=== PATIENT | female | born 1995 | race Caucasian/White ===

== ENCOUNTER 2020-03-10 20:08 | Emergency (ER) | payer MEDICAID ==
[~2020-03-10] VITALS: Ht 152.4 cm; Wt 93.9 kg
[2020-03-10 20:12] VITALS: BP_SYST 104
--- NOTE | 2020-03-10 20:28 | NUR ---
RECEIVED AND IN ROOM, LYUBOV TO ASSUME CARE
--- NOTE | 2020-03-10 20:32 | NUR ---
PT UP AMBULATING STEADY. URINE OBTAINED
[2020-03-10] MEDS ORDERED: NACL 0.9% 1,000 ML IV ONE (20:45)
--- NOTE | 2020-03-10 21:02 | NUR ---
CALM, ALERT, RESP UNLABORED, IV HYDRATION, LABS SENT
[2020-03-10 21:04] LABS: BASOPHILS % (AUTO) 0.4 % (0.0-2.0); EOSINOPHILS % (AUTO) 0.1 % (0.0-4.0); HEMATOCRIT 24.9 % (36-48); HEMOGLOBIN 8.6 g/dL (12.0-16.0); LYMPHOCYTES # (AUTO) 2.6 K/uL (1.0-5.5); LYMPHOCYTES % (AUTO) 29.4 % (20.5-51.5); MEAN CORPUSCULAR HEMOGLOBIN 30 pg (27-31); MEAN CORPUSCULAR HGB CONC 35 % (32-36); MEAN CORPUSCULAR VOLUME 86 fL (79.0-98.0); MONOCYTES # (AUTO) 0.4 K/uL (0.0-1.0); MONOCYTES % (AUTO) 5.1 % (1.7-9.3); NEUTROPHILS # (AUTO) 5.7 K/uL (1.8-7.7); PLATELET COUNT (AUTO) 251 K/uL (130-430); RED BLOOD CELL COUNT(AUTO) 2.89 MIL/uL (4.2-6.2); RED CELL DISTRIBUTION WIDTH 14.7 % (9.0-15.0); WHITE BLOOD COUNT (AUTO) 8.7 K/uL (4.8-10.8)
[2020-03-10] MEDS ORDERED: MORPHINE 2 MG/ML INJ. SYRINGE IVP ONE (21:15)
[2020-03-10 21:24] LABS: BILIRUBIN,URINE NEGATIVE (NEGATIVE); BLOOD, URINE 3+ (NEGATIVE); CLARITY/URINE CLEAR (CLEAR); COLOR,URINE YELLOW (YELLOW); GLUCOSE,URINE NEGATIVE (NEGATIVE); KETONES,URINE 1+ (NEGATIVE); LEUKOCYTE ESTERASE ,URINE TRACE (NEGATIVE); NITRITE, URINE NEGATIVE (NEGATIVE); PH,URINE 8.5 (5.0-8.0); PROTEIN URINE TRACE (NEGATIVE)
[2020-03-10 21:53] LABS: CALCIUM 8.1 mg/dL (8.4-11.0); CREATININE 0.65 mg/dL (0.55-1.30); POTASSIUM 3.4 mmol/L (3.5-5.1)
--- NOTE | 2020-03-10 22:03 | NUR ---
OFF TO ULTRASOUND, NO DISTRESS, PAIN TOLERABLE
[2020-03-10 22:31] LABS: TOTAL BILIRUBIN 0.2 mg/dL (0.0-1.0)
[2020-03-10 22:37] LABS: BACTERIA,URINE None Seen /HPF (None Seen); RBC,URINE 80-100 /HPF (0-3); TRICHOMONAS,URINE None Seen /HPF (None Seen); YEAST,URINE None Seen /HPF (None Seen)
--- NOTE | 2020-03-10 22:38 | NUR ---
BACK FROM ULTRASOUND, DENIES [PAIN. NO COMPLAINTS.
--- NOTE | 2020-03-10 23:30 | NUR ---
Pt states that she went to [facility] on and was given the first dose of an "" pill. She then took 4 more on Wednesday. She states that she experienced a "normal" amount of vaginal bleeding at 1200, then bleeding became heavy around an hour later. Pt states that she soaked 1 pad within minutes. At 1900, pt states that she passed out while on the toilet. Denies hitting head or sustaining trauma. Pt states that she soaked a total of 18 pads since midnight. Pt was brought to ER by and was admitted to OB under the services of Dr. De Leon. Pt was subsequently discharged this AM with Dx Incomplete and instructed to return to ER should symptoms worsens. Pt states that she is currently passing dark red clots. At this time, pt c/op Nausea and generalized weakness. Denies c/o pain.
--- NOTE | 2020-03-10 23:40 | NUR ---
Dr. Cid at bedside.
[2020-03-10] MEDS ORDERED: ONDANSETRON HCL 4 MG/2 ML VIAL IVP ONE (23:45)
--- NOTE | 2020-03-11 | NUR ---
Johnna steiner in [facility] - 03/11/20 at 0012 by KUSUMJ Pt moved to bed 07.
--- NOTE | 2020-03-11 | NUR ---
Pt moved to ER bed 03.
--- NOTE | 2020-03-11 00:15 | NUR ---
Zofran 4 mg IVP given for c/o nausea.
--- NOTE | 2020-03-11 01:30 | NUR ---
Pt denies c/o pain or discomfort and states that bleeding is very minimal. No needs verbalized.
--- NOTE | 2020-03-11 01:55 | NUR ---
No further c/o nausea. No needs verbalized at this time.
--- NOTE | 2020-03-11 02:38 | NUR ---
Note undone in EDM - 03/11/20 at 0258 by TONY Patient to be transferred to [facility], Rm [id number]. Is being transferred due to higher level of care. Receiving facility has accepting physician and available space. ER physician has signed transfer form. Patient or responsible alliance party has agreed to transfer and signed form. Patient belongings inventoried and will be sent with patient. Copy of nursing notes, lab reports, EKG, Physicians Orders and X-rays to be sent with patient. Report called to HILDA Luong at receiving facility. Receiving physician is Rafaela. Pt leaves in c/o BLS ambulance via stretcher in stable condition.
--- NOTE | 2020-03-11 02:38 | NUR ---
B/P 86/45, HR 98, per BLS. B/P recheck 94/62, HR 99. Dr. Cid notified. Pt not to be transferred until B/P stable. Pt denies c/o dizziness. Pt states that she has soaked 2 pads since arrival to ER. Pt states vaginal bleeding has diminished.
--- NOTE | 2020-03-11 02:40 | NUR ---
NS 1 Liter bolus infusing to patent PIV LAC.
[2020-03-11] MEDS ORDERED: NACL 0.9% 1,000 ML IV ONE ×2 (02:45→03:30)
--- NOTE | 2020-03-11 02:45 | NUR ---
BLS leaves and states to call them when pt is ready.
--- NOTE | 2020-03-11 03:10 | NUR ---
B/P 97/50, HR 80. BLS transport called and states ETA [address] Cid notified of V/S and a second liter NS to be administered.
--- NOTE | 2020-03-11 03:38 | NUR ---
B/P 104/52, HR 80, SPO2 97%. Second NS 1 Liter bolus in progress. Pt denies c/o pain or discomfort. Warm blanket provided.
--- NOTE | 2020-03-11 04:05 | NUR ---
B/P 110/46, HR 83. Denies c/o pain or discomfort, no needs verbalized. Pt care endorsed to HILDA Hill.
[2020-03-11 04:28] VITALS: BP_SYST 100
--- NOTE | 2020-03-11 04:30 | NUR ---
Patient to be transferred to [facility] Is being transferred due to higher level of care. Receiving facility has accepting physician and available space. ER physician has signed transfer form. Patient or responsible republican has agreed to transfer and signed form. Patient belongings inventoried and will be sent with patient. Copy of nursing notes, lab reports, EKG, Physicians Orders and X-rays to be sent with patient. Report called to Cherise at receiving facility. Receiving physician is Rafaela. [facility] ambulance service on scene for transfer. Report Given and transferred to [facility] without incident
== END 2020-03-11 04:30 | disposition short-term general hospital (02) ==
LOC: SED 20:08
DX: N93.9 Abnormal uterine and vaginal bleeding, unspecified (principal); D64.9 Anemia, unspecified
CPT/HCPCS: 36415; 76801; 76817; 80053; 81000; 84702; 85025; 96361; 96374; 96375; 99285; J2270; J2405; J7030 ×2

== ENCOUNTER 2020-05-14 22:42 | Emergency (ER) | payer MEDICAID ==
[~2020-05-14] VITALS: Ht 160 cm; Wt 72.6 kg
[2020-05-14 22:46] VITALS: BP_SYST 150
--- NOTE | 2020-05-14 22:46 | NUR ---
Patient triaged and placed in waiting room. VSS and patient appears in no acute distress at this time. Accompanied by FAM MEMBER, awaiting available bed, and MD notified of need for MSE.
--- NOTE | 2020-05-14 23:35 | NUR ---
Patient to ER bed 3 to gown for evaluation. Side rails up. Report given to Haydee STEVENS.
--- NOTE | 2020-05-15 00:05 | NUR ---
ER Dr. GEORGE at bedside examining patient.
--- NOTE | 2020-05-15 00:06 | NUR ---
PT A&O X4 FROM HOME C/O OF LOWER ABDOMINAL PAIN THAT STARTED AROUND 1AM THIS MORNING THAT WOKE HER UP FROM SLEEP. PT REPORTS IT IS A BURNING/SHARP PAIN THAT COMES AND GOES. PT HAD 3-4 EPISODES OF VOMITING SINCE THE PAIN STARTED. PT REPORTS SHE HAS BEEN OFF AND ON BLEEDING SINCE WHICH LEAD TO DIAGNOSIS OF A MASS ON HER UTERUS WHICH SHE HAS STARTED CHEMO FOR. PT DENIES NAUSEA AT THE MOMENT, FEVER, CHILLS, REBOUND TENDERNESS. WILL CONTINUE TO MONITOR.
[2020-05-15] MEDS ORDERED: NACL 0.9% 1,000 ML IV ONE ×2 (00:15→02:45)
[2020-05-15] MEDS ORDERED: ONDANSETRON HCL 4 MG/2 ML VIAL IVP ONE (00:15)
[2020-05-15] MEDS ORDERED: DIPHENHYDRAMINE INJ 50 MG/ML VIAL IVP ONE (00:15)
[2020-05-15] MEDS ORDERED: MORPHINE 4 MG/ML INJ. SYRINGE IVP ONE ×2 (00:15→03:00)
--- NOTE | 2020-05-15 00:22 | NUR ---
# 20 gauge angiocath placed to LEFT AC. Use of asceptic technique. Opsite placed over site. Blood return noted. Blood for lab drawn from site. Flushed with 10 cc of normal saline. No evidence of infiltration noted. Patient tolerated well.
[2020-05-15 00:37] LABS: BASOPHILS % (AUTO) 0.4 % (0.0-2.0); EOSINOPHILS % (AUTO) 0.5 % (0.0-4.0); HEMATOCRIT 33.4 % (36-48); HEMOGLOBIN 10.8 g/dL (12.0-16.0); LYMPHOCYTES # (AUTO) 2.9 K/uL (1.0-5.5); LYMPHOCYTES % (AUTO) 33.1 % (20.5-51.5); MEAN CORPUSCULAR HEMOGLOBIN 26 pg (27-31); MEAN CORPUSCULAR HGB CONC 32 % (32-36); MEAN CORPUSCULAR VOLUME 81 fL (79.0-98.0); MONOCYTES # (AUTO) 0.6 K/uL (0.0-1.0); MONOCYTES % (AUTO) 7.4 % (1.7-9.3); NEUTROPHILS # (AUTO) 5.1 K/uL (1.8-7.7); NEUTROPHILS % (AUTO) 58.6 % (40.0-70.0); PLATELET COUNT (AUTO) 321 K/uL (130-430); RED BLOOD CELL COUNT(AUTO) 4.13 MIL/uL (4.2-6.2); RED CELL DISTRIBUTION WIDTH 17.5 % (9.0-15.0); WHITE BLOOD COUNT (AUTO) 8.7 K/uL (4.8-10.8)
[2020-05-15 00:48] LABS: BILIRUBIN,URINE NEGATIVE (NEGATIVE); BLOOD, URINE 2+ (NEGATIVE); CLARITY/URINE CLEAR (CLEAR); COLOR,URINE YELLOW (YELLOW); GLUCOSE,URINE NEGATIVE (NEGATIVE); KETONES,URINE NEGATIVE (NEGATIVE); LEUKOCYTE ESTERASE ,URINE NEGATIVE (NEGATIVE); NITRITE, URINE NEGATIVE (NEGATIVE); PROTEIN URINE NEGATIVE (NEGATIVE); UROBILINOGEN,URINE 0.2 (0.2-1.0)
[2020-05-15 00:49] LABS: CALCIUM 8.5 mg/dL (8.4-11.0); CREATININE 0.57 mg/dL (0.55-1.30)
[2020-05-15 00:54] LABS: ALBUMIN 3.4 g/dL (3.4-4.8); TOTAL BILIRUBIN 0.2 mg/dL (0.0-1.0)
[2020-05-15 00:59] LABS: BACTERIA,URINE FEW /HPF (None Seen); HYALINE CASTS, URINE 0-10 /LPF (None Seen); WBC,URINE 0-3 /HPF (0-3)
--- NOTE | 2020-05-15 01:00 | NUR ---
Patient transported to radiology via WHEELCHAIR, accompanied by
--- NOTE | 2020-05-15 01:15 | NUR ---
PATIENT RETURNED FROM RADIOLOGY IN STABLE CONDITION.
--- NOTE | 2020-05-15 02:38 | NUR ---
DR. GEORGE AT BEDSIDE SPEAKING WITH PATIENT.
[2020-05-15 03:50] VITALS: BP_SYST 105
--- NOTE | 2020-05-15 03:50 | NUR ---
Patient given written and verbal discharge instructions and verbalizes understanding. ER MD discussed with patient the results and treatment provided. Patient in stable condition. ID arm band removed. IV catheter removed intact and dressing applied, no active bleeding. no Rx of given. Patient educated on pain management and to follow up with PMD. Pain Scale 2/10. Opportunity for questions provided and answered. Medication side effect fact sheet provided.
== END 2020-05-15 03:50 | disposition home or self-care (01) ==
LOC: SED 22:42
DX: C55 Malignant neoplasm of uterus, part unspecified (principal); R10.9 Unspecified abdominal pain
CPT/HCPCS: 36415; 74177; 76376; 80053; 81000; 81025; 85025; 96361; 96374; 96375; 96376; 99285; J1200; J2270; J2405; J7030; Q9967

== ENCOUNTER 2020-06-14 09:35 | Emergency (ER) | payer MEDICAID, SELFPAY ==
[~2020-06-14] VITALS: Ht 154.9 cm; Wt 93.0 kg
[2020-06-14 10:00] VITALS: BP_SYST 97
[2020-06-14 12:00] VITALS: BP_SYST 97
== END 2020-06-14 12:00 | disposition home or self-care (01) ==
LOC: SED 09:35
DX: J02.9 Acute pharyngitis, unspecified (principal)
CPT/HCPCS: 36415; 86403; 87081; 99283

== ENCOUNTER 2022-08-05 11:28 | Emergency (ER) | payer MEDICAID ==
[~2022-08-05] VITALS: Ht 152.4 cm; Wt 106.1 kg
[2022-08-05 11:31] VITALS: BP_SYST 104
--- NOTE | 2022-08-05 11:40 | NUR ---
Pt brought by self, A&Ox4, pt presents to ER with cough, congestion x 2 days, O2 98%, skin pink and warm, cap refill <3, will cont to monitor.
--- NOTE | 2022-08-05 13:10 | NUR ---
Dr Scales evaluating patient at bedside
[2022-08-05] MEDS ORDERED: IBUP-1969 PO (13:29)
[2022-08-05] MEDS ORDERED: GUAI-723 PO (13:29)
[2022-08-05] MEDS ORDERED: BENZ100C92 PO (13:29)
--- NOTE | 2022-08-05 13:47 | NUR ---
Patient given written and verbal discharge instructions and verbalizes understanding. ER MD discussed with patient the results and treatment provided. Patient in stable condition. ID arm band removed. Rx of Benzonatate, Mucinex, Ibuprofen given. Patient educated on pain management and to follow up with PMD. Pain Scale 2/10 . Opportunity for questions provided and answered. Medication side effect fact sheet provided.
[2022-08-05 13:48] VITALS: BP_SYST 104
== END 2022-08-05 13:47 | disposition home or self-care (01) ==
LOC: SED 11:28
DX: J06.9 Acute upper respiratory infection, unspecified (principal); R07.89 Other chest pain; R05.9 Cough, unspecified; R09.81 Nasal congestion; Z79.899 Other long term (current) drug therapy; Z20.822 Contact with and (suspected) exposure to COVID-19
CPT/HCPCS: 36415; 93005; 99284